=== PATIENT | female | born 1985 | race Caucasian/White ===

== ENCOUNTER 2023-09-09 07:44 | Emergency (ER) | payer MEDICAID ==
[~2023-09-09] VITALS: Ht 167.6 cm; Wt 85.0 kg
[2023-09-09 07:50] VITALS: O2SAT 100
[2023-09-09 08:26] LABS: BASOPHILS % 0.4 % (0.0-2.0); EOSINOPHILS % 0.4 % (0.0-5.0); HEMATOCRIT. 47.3 % (36.0-48.0); HEMOGLOBIN. 15.9 g/dL (12.0-16.0); LYMPHOCYTES % 35.2 % (20.0-50.0); MEAN CORPUSCULAR HGB CONC 33.7 g/dL (31.0-37.0); MEAN CORPUSCULAR VOLUME 91.8 fL (81.0-99.0); MEAN PLATELET VOLUME 8.5 fl (7.4-10.4); MONOCYTES % 3.6 % (2.0-8.0); NEUTROPHILS % 60.4 % (40.0-76.0); PLATELET 272 x1000/uL (130-400); RED BLOOD CELL COUNT 5.15 mill/uL (4.2-5.4); RED CELL DISTRIBUTION WIDTH 12.8 % (11.6-14.6); WHITE BLOOD COUNT 8.4 x1000/uL (4.5-11.0)
[2023-09-09 08:52] LABS: ALANINE AMINOTRANSFERASE 43 IU/L (10-49); ALBUMIN 4.6 g/dL (3.2-4.8); ASPARTATE AMINOTRANSFERASE 26 IU/L (<34); BILIRUBIN TOTAL 0.9 mg/dL (0.1-1.0); CALCIUM 9.3 mg/dL (8.7-10.4); CARBON DIOXIDE 20 mEq/L (21-32); CHLORIDE 106 mEq/L (98-107); CREATININE 0.7 mg/dL (0.6-1.0); GLUCOSE 155 mg/dL (70-105); POTASSIUM 3.7 mEq/L (3.5-5.1); PROTEIN TOTAL 7.4 g/dL (6.0-8.3); SODIUM 136 mEq/L (136-145); UREA NITROGEN BLOOD 7 mg/dL (9-23)
[2023-09-09] MEDS: MAGNESIUM/ALUMINUM HYDROXIDE/SIMETHICONE 30ML UDC PO STA (10:32)
[2023-09-09] MEDS: FAMOTIDINE 20MG/2ML VIAL IV STA (10:32)
[2023-09-09] MEDS: ONDANSETRON 4MG ODT PO ONE (10:45)
[2023-09-09] MEDS: SODIUM CHLORIDE 0.9% 1,000 ML IV ONE (11:04)
[2023-09-09 11:32] LABS: TROPONIN I HIGH SENSITIVITY < 4 ng/L (3.0-34)
[2023-09-09 11:40] LABS: HCG SCREEN NEGATIVE
[2023-09-09 12:09] LABS: CLARITY URINE CLOUDY (CLEAR); COLOR URINE YELLOW (YELLOW); GLUCOSE URINE NEGATIVE (NEGATIVE); KETONES URINE TRACE (NEGATIVE); LEUKOCYTE ESTERASE URINE 2+ (NEGATIVE); NITRITE URINE NEGATIVE (NEGATIVE); OCCULT BLOOD URINE NEGATIVE (NEGATIVE); PROTEIN URINE 1+ (NEGATIVE); SPECIFIC GRAVITY URINE 1.023 (1.005-1.030); UROBILINOGEN URINE 0.2 E.U./dL (0.2-1.0)
[2023-09-09 12:33] LABS: BACTERIA URINE 4+; SQUAMOUS EPITHELIAL CELL URINE 3+ /lpf (RARE/1+); YEAST URINE NONE SEEN
[2023-09-09] MEDS ORDERED: CEPH500C2 MT (12:48)
[2023-09-09] MEDS ORDERED: FAMO20TA8 MT (12:48)
[2023-09-09 13:55] VITALS: BP 86/67; PULSE 98; RESP 18; TEMP 98
== END 2023-09-09 13:55 | disposition home or self-care (01) ==
LOC: ER 07:44
DX: N39.0 Urinary tract infection, site not specified (principal); R11.2 Nausea with vomiting, unspecified; E78.00 Pure hypercholesterolemia, unspecified
CPT/HCPCS: 80053; 81003; 81025; 84703; 83690; 85025; 87086; 84484; 87077; 36415; 76705; 93005; 96361; 96374; 99285; Q0162; J3490; J7030; Z7610 ×3

== ENCOUNTER 2024-03-03 10:12 | Emergency (ER) | payer MEDICAID ==
[~2024-03-03] VITALS: Ht 162.6 cm; Wt 90.7 kg
[~2024-03-03 10:12] MED LIST: CEPH500C2 MT; FAMO20TA8 MT
[2024-03-03 10:20] VITALS: O2SAT 98
[2024-03-03 10:42] LABS: BASOPHILS % 0.2 % (0.0-2.0); EOSINOPHILS % 1.5 % (0.0-5.0); HEMATOCRIT. 46.2 % (36.0-48.0); HEMOGLOBIN. 15.5 g/dL (12.0-16.0); LYMPHOCYTES % 38.9 % (20.0-50.0); MEAN CORPUSCULAR HEMOGLOBIN 30.9 pg (28.0-32.0); MEAN CORPUSCULAR HGB CONC 33.5 g/dL (31.0-37.0); MEAN CORPUSCULAR VOLUME 92.3 fL (81.0-99.0); MEAN PLATELET VOLUME 8.3 fl (7.4-10.4); MONOCYTES % 4.7 % (2.0-8.0); NEUTROPHILS % 54.7 % (40.0-76.0); PLATELET 249 x1000/uL (130-400); RED BLOOD CELL COUNT 5.01 mill/uL (4.2-5.4); RED CELL DISTRIBUTION WIDTH 13.4 % (11.6-14.6); WHITE BLOOD COUNT 7.1 x1000/uL (4.5-11.0)
[2024-03-03 10:47] LABS: CHLORIDE 108 mEq/L (98-107); POTASSIUM 4.1 mEq/L (3.5-5.1); SODIUM 138 mEq/L (136-145)
[2024-03-03 10:48] LABS: CARBON DIOXIDE 22 mEq/L (21-32)
[2024-03-03 10:51] LABS: CLARITY URINE CLEAR (CLEAR); COLOR URINE YELLOW (YELLOW); GLUCOSE URINE NEGATIVE (NEGATIVE); KETONES URINE NEGATIVE (NEGATIVE); LEUKOCYTE ESTERASE URINE TRACE (NEGATIVE); NITRITE URINE NEGATIVE (NEGATIVE); OCCULT BLOOD URINE NEGATIVE (NEGATIVE); PH URINE 7.5 (4.5-8.0); PROTEIN URINE NEGATIVE (NEGATIVE); SPECIFIC GRAVITY URINE 1.015 (1.005-1.030); UROBILINOGEN URINE 0.2 E.U./dL (0.2-1.0)
[2024-03-03] MEDS: MAGNESIUM/ALUMINUM HYDROXIDE/SIMETHICONE 30ML UDC PO ONE (10:52)
[2024-03-03 10:53] LABS: CREATININE 0.7 mg/dL (0.6-1.0); GLUCOSE 111 mg/dL (70-105); UREA NITROGEN BLOOD 5 mg/dL (9-23)
[2024-03-03] MEDS: ACETAMINOPHEN 325MG TABLET PO ONE (10:53)
[2024-03-03] MEDS: ONDANSETRON 4MG ODT PO ONE (10:53)
[2024-03-03 10:54] LABS: ALANINE AMINOTRANSFERASE 69 IU/L (10-49)
[2024-03-03 10:55] LABS: ALBUMIN 4.5 g/dL (3.2-4.8); ASPARTATE AMINOTRANSFERASE 42 IU/L (<34); BILIRUBIN TOTAL 0.9 mg/dL (0.1-1.0); HCG SCREEN NEGATIVE; PROTEIN TOTAL 6.9 g/dL (6.0-8.3)
[2024-03-03 11:25] LABS: BACTERIA URINE 2+; RBC URINE NONE SEEN /hpf (0-2); SQUAMOUS EPITHELIAL CELL URINE 1+ /lpf (RARE/1+); WBC URINE 0-2 /hpf (0-2)
[2024-03-03] MEDS ORDERED: FAMO20TA8 MT (12:10)
[2024-03-03] MEDS ORDERED: ONDA4TAB50 MT (12:14)
[2024-03-03 12:35] VITALS: BP 113/60; PULSE 80; RESP 18; TEMP 98.2
== END 2024-03-03 12:44 | disposition home or self-care (01) ==
LOC: ER 10:12
DX: R10.13 Epigastric pain (principal)
CPT/HCPCS: 99284; 76705; 80053; 81003; 81025; 84703; 83690; 85025; 36415; Q0162

== ENCOUNTER 2024-06-10 18:05 | Emergency (ER) | payer MEDICAID ==
[~2024-06-10] VITALS: Ht 165.1 cm; Wt 90.0 kg
[~2024-06-10 18:05] MED LIST changes: +ONDA4TAB50 MT
[2024-06-10 18:10] VITALS: O2SAT 99
[2024-06-10 18:21] VITALS: BP 116/64; PULSE 83; RESP 16; TEMP 98.4; O2SAT 99
== END 2024-06-10 19:01 | disposition left against medical advice (07) ==
LOC: ER 18:05
DX: R05.9 Cough, unspecified (principal); Z53.21 Procedure and treatment not carried out due to patient leaving prior to being seen by health care provider

== ENCOUNTER 2024-10-24 14:31 | Emergency (ER) | payer MEDICAID ==
[~2024-10-24] VITALS: Ht 165.1 cm; Wt 86.0 kg
[2024-10-24 14:44] VITALS: TEMP 36.8; O2SAT 99
[2024-10-24 14:47] VITALS: O2SAT 98
[2024-10-24 15:26] LABS: BASOPHILS % 0.3 % (0.0-2.0); EOSINOPHILS % 1.5 % (0.0-5.0); HEMATOCRIT. 44.8 % (36.0-48.0); HEMOGLOBIN. 14.9 g/dL (12.0-16.0); LYMPHOCYTES % 18.3 % (20.0-50.0); MEAN CORPUSCULAR HEMOGLOBIN 30.7 pg (28.0-32.0); MEAN CORPUSCULAR HGB CONC 33.3 g/dL (31.0-37.0); MEAN CORPUSCULAR VOLUME 92.2 fL (81.0-99.0); MEAN PLATELET VOLUME 8.4 fl (7.4-10.4); MONOCYTES % 4.5 % (2.0-8.0); NEUTROPHILS % 75.4 % (40.0-76.0); PLATELET 271 x1000/uL (130-400); RED BLOOD CELL COUNT 4.86 mill/uL (4.2-5.4); RED CELL DISTRIBUTION WIDTH 13.3 % (11.6-14.6); WHITE BLOOD COUNT 8.9 x1000/uL (4.5-11.0)
[2024-10-24 15:35] LABS: CHLORIDE 106 mEq/L (98-107); POTASSIUM 3.9 mEq/L (3.5-5.1); SODIUM 138 mEq/L (136-145)
[2024-10-24 15:36] LABS: CALCIUM 9.2 mg/dL (8.7-10.4); CARBON DIOXIDE 25 mEq/L (21-32)
[2024-10-24 15:41] LABS: CREATININE 0.7 mg/dL (0.6-1.0); GLUCOSE 116 mg/dL (70-105); UREA NITROGEN BLOOD 8 mg/dL (9-23)
[2024-10-24] MEDS ORDERED: MECL-299 MT (15:49)
[2024-10-24 16:13] VITALS: BP 132/79; PULSE 66; RESP 16; TEMP 98.3
[2024-10-24] MEDS: ONDANSETRON 4MG ODT PO ONE (16:13)
[2024-10-24] MEDS: KETOROLAC 15MG/ML VIAL IM ONE (16:13)
[2024-10-24] MEDS: MECLIZINE 25MG TABLET PO ONE (16:13)
[2024-10-24] MEDS: ACETAMINOPHEN 325MG TABLET PO ONE (16:13)
== END 2024-10-24 16:22 | disposition home or self-care (01) ==
LOC: ER 14:31
DX: B34.9 Viral infection, unspecified (principal); I10 Essential (primary) hypertension
CPT/HCPCS: 99284; 80048; 85025; 36415; 93005; 96372; J1885; J8597; Q0162